=== PATIENT | female | born 1945 | race Caucasian/White ===

== ENCOUNTER 2017-03-13 08:49 | Outpatient (CLI) | payer OTHER | END 2017-03-13 08:50 | disposition home or self-care (01) | LOC: BICMAMMO 08:49 | PROVIDERS: ATTEND Nurse Practitioner | DX: Z12.31 Encounter for screening mammogram for malignant neoplasm of breast (principal) | CPT/HCPCS: 77063; 77067 ==

== ENCOUNTER 2018-02-15 13:00 | Outpatient (CLI) | payer MEDICARE ==
[2018-02-15 13:45] LABS: #Basophils 0.1 thou/uL (0.0-0.2); #Eosinphils 0.1 thou/uL (0.0-0.7); #Lymphocytes 1.9 thou/uL (1.20-3.40); #Monocytes 0.4 thou/uL (0.11-0.59); #Neutrophils 5.3 thou/uL (1.40-6.50); %Basophils 0.9 % (0.0-1.0); %Eosinophils 1.2 % (0.0-10.0); %Lymphocytes 24.6 % (21.0-51.0); %Neutrophils 68.3 % (42.0-75.0); Hemoglobin 15.4 g/dL (12.0-16.0); Mean Corpuscular HGB CONC 33.4 g/dL (32.0-36.0); Mean Corpuscular Hemoglobin 30.7 pg (27.0-31.0); Mean Corpuscular Volume 91.8 fL (78.0-98.0); Mean Platelet Volume 7.5 fL (7.4-10.4); Platelet Count 310 thou/uL (130-400); RBC Distribution Width 11.1 % (11.5-14.5); Red Blood Cell (RBC) Count 5.02 mill/uL (4.20-5.40); White Blood Cell (WBC) Count 7.8 thou/uL (4.8-10.8)
[2018-02-15 13:50] LABS: Prothrombin Time 13.4 SEC (12.0-14.7)
[2018-02-15 14:10] LABS: ALT (SGPT) 17 U/L (8-55); AST (SGOT) 23 U/L (5-34); Albumin 4.7 g/dL (3.4-4.8); Alkaline Phosphatase 110 U/L (40-150); Anion Gap 14 mmol/L (10-20); BUN (Urea Nitrogen) 14 mg/dL (9.8-20.1); Bilirubin, Total 0.7 mg/dL (0.2-1.2); Calc. Creatinine Clearance 0 mL/min (70-130); Calcium 9.6 mg/dL (7.8-10.44); Carbon Dioxide 25 mmol/L (23-31); Chloride 107 mmol/L (98-107); Estimated GFR-MDRD 63; Globulin 2.4 g/dL (2.4-3.5); Glucose 97 mg/dL (83-110); Potassium 4.6 mmol/L (3.5-5.1); Protein, Total 7.1 g/dL (6.0-8.3); Sodium 141 mmol/L (136-145)
== END 2018-02-15 13:01 | disposition home or self-care (01) ==
LOC: LABBT 13:00
PROVIDERS: ATTEND Internal Medicine Cardiovascular Disease
DX: Z01.812 Encounter for preprocedural laboratory examination (principal); R94.39 Abnormal result of other cardiovascular function study
CPT/HCPCS: 80053; 85025; 85610; 85730

== ENCOUNTER 2018-02-22 05:35 | Day surgery (SDC) | payer MEDICARE ==
[2018-02-22] MEDS ORDERED: Diazepam 5 MG TAB ONE (06:59)
[2018-02-22] MEDS ORDERED: Nitroglycerin 100MG/250ML BOT 250 ML ONE (08:16)
[2018-02-22] MEDS ORDERED: Verapamil 5 MG/2 ML VIAL ONE (08:16)
[2018-02-22] MEDS ORDERED: Heparin 10,000 UNITS/1 ML VIAL ONE (08:16)
[2018-02-22] MEDS ORDERED: Midazolam HCl 2 mg/2 ml Vial ONE (08:44)
[2018-02-22] MEDS ORDERED: Fentanyl 100 MCG/2 ML VIAL ONE (08:44)
[2018-02-22] MEDS ORDERED: Iopamidol 370 76% 100 ML VIAL ONE (09:20)
== END 2018-02-22 13:30 | disposition home or self-care (01) ==
LOC: CCL 05:35
PROVIDERS: ATTEND Internal Medicine Cardiovascular Disease
PROC: 4A023N7 Measurement of Cardiac Sampling and Pressure, Left Heart, Percutaneous Approach (ICD-10-PCS; principal; 2018-02-22)
PROC: B2111ZZ Fluoroscopy of Multiple Coronary Arteries using Low Osmolar Contrast (ICD-10-PCS; 2018-02-22)
DX: R94.39 Abnormal result of other cardiovascular function study (principal); E78.00 Pure hypercholesterolemia, unspecified; I10 Essential (primary) hypertension; E78.5 Hyperlipidemia, unspecified; Z82.49 Family history of ischemic heart disease and other diseases of the circulatory system; Z79.82 Long term (current) use of aspirin; Z79.899 Other long term (current) drug therapy
CPT/HCPCS: 76942; 93458; 99152; 99153; C1769; J1644; J2250; J3010

== ENCOUNTER 2018-03-14 10:01 | Outpatient (CLI) | payer OTHER | END 2018-03-14 10:02 | disposition home or self-care (01) | LOC: BICMAMMO 10:01 | PROVIDERS: ATTEND Clinical Nurse Specialist Medical-Surgical | DX: Z12.31 Encounter for screening mammogram for malignant neoplasm of breast (principal); Z80.3 Family history of malignant neoplasm of breast | CPT/HCPCS: 77063; 77067 ==

== ENCOUNTER 2018-10-02 10:52 | Observation (INO) | payer MEDICARE ==
[2018-10-02 11:50] LABS: #Basophils 0.1 thou/uL (0.0-0.2); #Eosinphils 0.2 thou/uL (0.0-0.7); #Lymphocytes 1.9 thou/uL (1.20-3.40); #Monocytes 0.4 thou/uL (0.11-0.59); #Neutrophils 4.2 thou/uL (1.40-6.50); %Basophils 1.6 % (0.0-1.0); %Eosinophils 2.4 % (0.0-10.0); %Neutrophils 61.9 % (42.0-75.0); Hemoglobin 11.1 g/dL (12.0-16.0); Mean Corpuscular Hemoglobin 31.9 pg (27.0-31.0); Mean Platelet Volume 7.7 fL (7.4-10.4); Platelet Count 237 thou/uL (130-400); RBC Distribution Width 11.1 % (11.5-14.5); White Blood Cell (WBC) Count 6.7 thou/uL (4.8-10.8)
[2018-10-02] MEDS ORDERED: Pantoprazole 40 MG VIAL ONE (12:18)
[2018-10-02 12:40] LABS: ALT (SGPT) 11 U/L (8-55); AST (SGOT) 19 U/L (5-34); Albumin 4.1 g/dL (3.4-4.8); Alkaline Phosphatase 78 U/L (40-150); Anion Gap 12 mmol/L (10-20); BUN (Urea Nitrogen) 25 mg/dL (9.8-20.1); Bilirubin, Total 0.4 mg/dL (0.2-1.2); Calc. Creatinine Clearance 0 mL/min (70-130); Calcium 9.4 mg/dL (7.8-10.44); Carbon Dioxide 26 mmol/L (23-31); Chloride 106 mmol/L (98-107); Estimated GFR-MDRD 63; Globulin 2.2 g/dL (2.4-3.5); Glucose 91 mg/dL (83-110); Lipase 34 U/L (8-78); Protein, Total 6.3 g/dL (6.0-8.3); Sodium 140 mmol/L (136-145)
[2018-10-02 13:30] LABS: Bilirubin Negative (Negative); Blood, Urine Negative (Negative); Clarity Clear (Clear); Glucose, Urine (Dipstick) Normal (Negative); Leukocyte Negative Leu/uL (Negative); Nitrite Negative (Negative); Protein, Urine (Dipstick) Negative (Neg-Trace); Urobilinogen Normal mg/dL (Less than 2)
[2018-10-02] MEDS ORDERED: Acetaminophen 325 MG TAB PO PRN ×2 (14:28→14:30)
[2018-10-02] MEDS ORDERED: Ondansetron ODT 4 MG TAB SL PRN (14:28)
[2018-10-02] MEDS ORDERED: HYDROcodone/Acetaminophen 5/325 mg Tablet PO PRN ×2 (14:28)
[2018-10-02] MEDS ORDERED: Ondansetron PF 4 MG/2 ML Vial IVP PRN (14:28)
[2018-10-02] MEDS ORDERED: hydrALAZINE 20 MG/ML VIAL SLOW IVP PRN (14:30)
[2018-10-02] MEDS ORDERED: Metoclopramide HCl 10 MG/2 ML VIAL IVP PRN (14:30)
[2018-10-02] MEDS ORDERED: Diabetic Tussin 200 MG/10 ML UDCUP PO PRN (14:30)
[2018-10-02] MEDS ORDERED: Zolpidem Tartrate 5 MG TAB PO PRN (14:30)
[2018-10-02] MEDS ORDERED: Cepastat Lozenges 1 LOZ PO PRN (14:30)
[2018-10-02] MEDS ORDERED: Calcium Carbonate 500 MG ChewTAB PO PRN (14:30)
[2018-10-02] MEDS ORDERED: Artificial Tears 18 DROP/0.9 ML EA EYE PRN (14:30)
[2018-10-02] MEDS ORDERED: Senokot S 8.6-50 MG TAB PO PRN (14:30)
[2018-10-02] MEDS ORDERED: Bisacodyl 10 MG SUPP PR PRN (14:30)
[2018-10-02] MEDS ORDERED: Loratadine 10 MG TAB PO PRN (14:30)
[2018-10-02] MEDS ORDERED: Loperamide HCl 2 MG CAP PO PRN (14:30)
[2018-10-02] MEDS ORDERED: Sodium Chloride 0.65% Nasal 44 ML BOT EA NARE PRN (14:30)
--- NOTE | 2018-10-02 14:44 | HP ---
PRIMARY CARE PHYSICIAN: [facility] REASON FOR ADMISSION: Hematemesis and melena. HISTORY OF PRESENT ILLNESS: A 73-year-old female, who has underlying history of chronic headache. The patient is taking naproxen sodium 2 tablet almost every day basis along with Excedrin with aspirin for headache. The patient does not have any epigastric abdominal pain. Two days ago the patient had one episode of coffee-grounds emesis and today patient noticed black tarry stool. The patient was feeling mild nausea, mild weakness, but she did not have any near-syncope or syncope. She did not have any chest pain, palpitation, abdominal pain. She never had this type of problem in past. She was worried about it and that is why decided to come to emergency room for evaluation. The patient is also taking aspirin for stroke prophylaxis for her atrial fibrillation. REVIEW OF SYSTEMS: CONSTITUTIONAL: Negative for weight loss or gain, ability to conduct usual activities. SKIN: Negative for rash, itching. EYES: Negative for double vision, pain. ENT/MOUTH: Negative for nose bleeding, neck stiffness, pain, tenderness. CARDIOVASCULAR: Negative for palpitations, dyspnea on exertion, orthopnea. RESPIRATORY: Negative for shortness of breath, wheezing, cough, hemoptysis, fever or night sweats. GASTROINTESTINAL: Negative for poor appetite, abdominal pain, heartburn, nausea, vomiting, constipation, or diarrhea. GENITOURINARY: Negative for urgency, frequency, dysuria, nocturia. MUSCULOSKELETAL: Negative for pain, swelling. NEUROLOGIC/PSYCHIATRIC: Negative for anxiety, depression. ALLERGY/IMMUNOLOGIC: Negative for skin rash, bleeding tendency. Please see my HPI for pertinent positive and negatives. All other review of systems reviewed and negative except as mentioned in HPI. PAST MEDICAL HISTORY: Paroxysmal atrial fibrillation, chronic headache. PAST PSYCHIATRIC HISTORY: Reviewed and negative. PAST SURGICAL HISTORY: Cyst removal from right breast, tonsillectomy, tubal ligation. SOCIAL HISTORY: The patient is . No history of tobacco, alcohol, or illicit drug abuse. FAMILY HISTORY: No strong family history of premature coronary artery disease, stroke, or cancer. ALLERGIES: NO KNOWN DRUG ALLERGIES. CURRENT HOME MEDICATIONS: 1. Aspirin 81 mg daily. 2. Flecainide 100 mg twice daily. 3. Toprol-XL 25 mg p.o. daily. EMERGENCY ROOM COURSE: The patient was given Protonix 40 mg IV one time dose. PHYSICAL EXAMINATION: VITAL SIGNS: Currently, blood pressure 124/74, pulse 70, respiratory rate 16, temperature 98.0, Saturation 97% on room air. Weight 69 kg. GENERAL: The patient is currently alert, awake in no obvious acute distress. HEENT: Head; normocephalic, atraumatic. Eyes; pupils round, reactive to light. Extraocular muscle intact. ENT: Oropharynx within normal limits. Moist mucous membranes. No oral lesion. No pharyngeal erythema. No exudate. NECK: Supple. No JVD. No thyromegaly. No carotid bruit. No jugular venous distention. LUNGS: Clear to auscultation without any rhonchi or rales. CARDIAC: S1, S2 regular. No murmur. No gallop. No rub. ABDOMEN: Soft. Bowel sounds present. Nontender. Nondistended. No organomegaly. No mass. No suprapubic tenderness. BACK: Unremarkable. No CVA tenderness. EXTREMITIES: Upper extremities passive movement of all joints are normal. Normal lower extremity. No edema. Good distal pulsation. SKIN: No skin rash. HEMATOLOGICAL: No lymphadenopathy. NEUROLOGIC: Nonfocal examination. SIGNIFICANT LABORATORY DATA: CBC: WBC 6.7, hemoglobin 11.1 platelet 237. BMP: Sodium 140, potassium 4.0, chloride 106, carbon dioxide 26, BUN 25, creatinine 0.88, glucose 91, calcium 9.4. LFT: AST 19, ALT 11, alkaline phosphatase 78, albumin 4.1, lipase 34. Urinalysis normal. ASSESSMENT AND PLAN: 1. Acute upper gastrointestinal bleed. The patient has episode of hematemesis and subsequent melenotic stool. She has elevated BUN, all consistent with upper gastrointestinal bleed, most likely related with non-steroidal anti-inflammatory drug induced gastritis versus peptic ulcer disease. The patient will be observed on the telemetry floor. We will consult project management consultant for further evaluation. We will repeat complete blood count tomorrow. We will continue with clear liquid diet. The patient will need upper endoscopy tomorrow and we will treat her with Protonix 40 mg IV b.i.d. The patient was given instruction about not to take non steroidal anti-inflammatory drugs on a chronic basis. 2. Anemia, likely due to acute blood loss, but the patient's hemoglobin is stable. She is not symptomatic and she does not need any blood transfusion at this point. We will repeat complete blood count tomorrow. 3. Paroxysmal atrial fibrillation. We will continue flecainide 100 mg twice daily and Toprol-XL 25 mg p.o. at bedtime we will hold on aspirin therapy for now. 4. Deep venous thrombosis prophylaxis, sequential compression device boots. 5. Gastrointestinal prophylaxis. The patient is already on Protonix therapy. CODE STATUS: The patient is full code. The patient's is surrogate decision maker. DISPOSITION PLAN: Based on clinical course, we are expecting patient's stay in hospital 24 to 48 hours. Plan of care discussed with the patient and her in detail. Job ID: [id number]
[2018-10-02 14:46] VITALS: BMI 23.9
[2018-10-02] MEDS: Sodium Chloride 0.9% 1,000 ML IV SCH (15:53)
[2018-10-02] MEDS ORDERED: Pantoprazole 40 MG VIAL IVP SCH (21:00)
[2018-10-02] MEDS ORDERED: Promethazine HCl 25 MG/ML VIAL SLOW IVP PRN (21:14)
[2018-10-02] MEDS ORDERED: Ondansetron HCl/PF 4 MG/2 ML Vial IVP PRN (21:14)
[2018-10-02] MEDS ORDERED: Promethazine HCl 25 MG/ML VIAL IM PRN (21:14)
[2018-10-02] MEDS ORDERED: Lidocaine 1% PF 5 ML VIAL ONE (21:57)
[2018-10-02] MEDS ORDERED: PROPOFOL 200 MG/20 ML VIAL ONE (21:57)
[2018-10-02] MEDS: Flecainide 50 MG TAB PO SCH (22:09)
[2018-10-02] MEDS: Pantoprazole 40 MG VIAL IVP SCH (22:14)
--- NOTE | 2018-10-02 22:53 | OP ---
DATE OF PROCEDURE: 10/02/2018 PROCEDURE PERFORMED: Esophagogastroduodenoscopy with biopsy. PREOPERATIVE DIAGNOSIS: A 73-year-old female with history of coffee-ground vomiting last night and also black tarry stool this morning, undergoing esophagogastroduodenoscopy. POSTOPERATIVE DIAGNOSES: 1. Normal esophagus. 2. Moderate-sized hiatal hernia, measuring about 3 cm. 3. Normal fundus and cardia. 4. Gastric ulcer over the gastric antrum measuring 1 cm with no visible vessel and clean base. 5. Multiple shallow ulcers in the gastric antrum. 6. Duodenitis with ulceration in the bulb. No active bleeding. Descending duodenum, no pathology. DESCRIPTION OF PROCEDURE: The patient was placed on her left lateral position and was given sedation by Anesthesia Department. A [employer] video gastroscope under direct vision passed down the oropharynx, past the GE junction into the stomach and subsequently into the descending duodenum. The stomach was completely free of any blood. The esophageal mucosa appeared normal. The GE junction, no pathology. She had a 3 cm sized Hiatal hernia. Retroflexion failed to show any pathology in fundus or cardia. The gastric body, no pathology. The gastric antrum showed 1 cm ulceration. It also showed a clean base. No visible vessel seen. There were 3 more shallow ulcerations in the antrum. The duodenal bulb, the mucosa markedly hyperemic and erythematous. There was ulceration seen, but we do not see any active bleeding. The descending duodenum, no pathology. Biopsy obtained from the gastric antrum and body. The stomach decompressed and the scope removed. RECOMMENDATION: 1. Continue Protonix. 2. Clear liquid diet today. 3. Follow up H and H. 4. If she is clinically stable, we may consider discharge later on tomorrow. Job ID: [id number] [facility]
--- NOTE | 2018-10-02 22:55 | CON ---
DATE OF CONSULTATION: 10/02/2018 REASON FOR CONSULTATION: Upper gastrointestinal bleeding. HISTORY OF PRESENT ILLNESS: Ms. Hanna Rizvi is a very pleasant 73-year-old female who is very healthy all her life. The only problem she has is paroxysmal atrial fibrillation and is on medications. She does see Dr. 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 She tells me she had a cardiac cath about 6 months ago and was told to be negative. On Toprol and flecainide. The patient has history of chronic headache off and on. The headache is actually over the years. There is nothing acute. She has taken naproxen and Excedrin and also the aspirin off and on for headache. She at least takes 4 or 5 times a week this medication. She has no history of any abdominal pain, nausea, vomiting. She had an episode of coffee-ground vomiting last night. This morning, she had 1 episode of black tarry stool. She came to the hospital and hospitalized. She has no previous symptoms. She has no abdominal pain. No nausea. No indigestion. No dyspepsia. No heartburn. Her bowel movements are regular. She had a negative colonoscopy a few years ago. The patient's bowel movements are fairly regular. She has only 1 black tarry stool today. She has no relevant history. ALLERGIES: NONE. SOCIAL HISTORY: The patient is . Does not smoke or drink alcohol. MEDICAL ILLNESS: 1. Paroxysmally atrial fibrillation on flecainide and Toprol. 2. History of chronic headache. 3. No history of any diabetes, hypertension, lung disease. PAST SURGICAL HISTORY: She had tubal ligation, breast biopsy, and tonsillectomy. MEDICATION LIST: Reviewed. FAMILY HISTORY: Father of myasthenia gravis at the age of 37. Mother, she is 90 years old, living and she has TIA. No family history of any cancer. SYSTEM REVIEW: CONSTITUTIONAL: No history of any fever. No night sweats. No weight loss. She has good appetite and good exercise tolerance. HEENT: She has headache all over the year and at times, the headache is very severe. No history of any syncope. No dizziness. No diplopia. No impaired vision. Ears; no hearing impairment. Throat; no sore throat or dysphagia. Neck; no stiffness or limited movement. LUNGS: No chronic coughing. No hemoptysis. No dyspnea. CARDIOVASCULAR SYSTEM: No chest pain. No palpitation. No dyspnea, orthopnea, or PND. GI: No abdominal pain. Bowel movements are regular. : Unremarkable. MUSCULOSKELETAL: Unremarkable. NEUROPSYCHIATRY: Nonrelevant. PHYSICAL EXAMINATION: GENERAL: She is a very pleasant female, appears very comfortable. VITAL SIGNS: Afebrile, pulse is 72, blood pressure 129/59. EYES: Conjunctivae clear. NECK: Supple. No adenitis or thyromegaly noted. CARDIOVASCULAR SYSTEM: First and second heart sounds heard. LUNGS: Clear to auscultation. ABDOMEN: Soft. No organomegaly. No tenderness. No masses. EXTREMITIES: Reveal no edema. LABORATORY DATA: CBC; WBC 6700, hemoglobin is 11.1, hematocrit 31.8, MCV 91, platelet count 237,000, polys are 61, lymphocytes 28. Chemistry panel, chem 7 is normal, BUN is 25, creatinine is 0.88. LFTs are normal. Alkaline phosphatase is 78. AST and ALT normal. Lipase 44. CLINICAL IMPRESSION: 1. A 73-year-old female, with upper gastrointestinal bleeding, most likely bleeding from ulcer disease, she has been long-term on NSAID and aspirin etc. 2. Abdominal pain. 3. Paroxysmal atrial fibrillation. PLANS: 1. N.p.o. 2. IV _Pantoprazole_. 3. Follow up H and H. 4. EGD later on today. Job ID: [id number] [facility]
[2018-10-03 05:51] LABS: #Basophils 0.1 thou/uL (0.0-0.2); #Eosinphils 0.2 thou/uL (0.0-0.7); #Lymphocytes 1.7 thou/uL (1.20-3.40); #Monocytes 0.3 thou/uL (0.11-0.59); #Neutrophils 2.4 thou/uL (1.40-6.50); %Basophils 1.6 % (0.0-1.0); %Eosinophils 3.4 % (0.0-10.0); %Lymphocytes 36.1 % (21.0-51.0); %Monocytes 7.2 % (0.0-10.0); %Neutrophils 51.7 % (42.0-75.0); Mean Corpuscular HGB CONC 34.5 g/dL (32.0-36.0); Mean Corpuscular Hemoglobin 31.9 pg (27.0-31.0); Mean Corpuscular Volume 92.5 fL (78.0-98.0); Platelet Count 191 thou/uL (130-400); Red Blood Cell (RBC) Count 3.12 mill/uL (4.20-5.40); White Blood Cell (WBC) Count 4.7 thou/uL (4.8-10.8)
[2018-10-03 06:10] LABS: Anion Gap 9 mmol/L (10-20); BUN (Urea Nitrogen) 13 mg/dL (9.8-20.1); Calc. Creatinine Clearance 72 mL/min (70-130); Calcium 8.4 mg/dL (7.8-10.44); Carbon Dioxide 26 mmol/L (23-31); Chloride 110 mmol/L (98-107); Estimated GFR-MDRD 74; Glucose 80 mg/dL (83-110); Potassium 3.8 mmol/L (3.5-5.1); Sodium 141 mmol/L (136-145)
[2018-10-03] MEDS: Sodium Chloride 0.9% 1,000 ML IV SCH (07:14)
[2018-10-03] MEDS: Flecainide 50 MG TAB PO SCH (07:42)
[2018-10-03] MEDS: Pantoprazole 40 MG VIAL IVP SCH (07:42)
[2018-10-03 08:30] VITALS: TEMP 98.4
[2018-10-03] MEDS ORDERED: Flecainide 50 MG TAB PO SCH (09:00)
[2018-10-03] MEDS ORDERED: FLECAINIDE ACETATE PO SCH (09:00)
[2018-10-03 12:38] VITALS: BP 112/56
--- NOTE | 2018-10-03 21:34 | DIS ---
DATE OF ADMISSION: 10/02/2018 DATE OF DISCHARGE: 10/03/2018 DISCHARGE DIAGNOSES: As of the followin. Acute upper gastrointestinal bleed. 2. Anemia. 3. Paroxysmal atrial fibrillation. HOSPITAL COURSE: The patient is a 73-year-old female, who initially presented to the hospital with complaints of dark stools and hematemesis. At this time, she was found to be anemic, however, it was stable. The patient did undergo an upper endoscopy that indicated she had multiple shallow ulcers in the gastric antrum, duodenitis and ulcerations in the pulp. No active bleeding was noted. The patient's H and H were stable. She was put on Protonix. She was discharged home. She will follow up with GI for the results of her biopsies. The patient's vital signs are stable. Her diet was advanced. She was advised to not take any Aleve or ibuprofen, only to take the aspirin as per recommendation for her paroxysmal atrial fibrillation. She is going to be on Protonix 40 mg b.i.d., aspirin 81 mg daily, flecainide one tablet p.o. b.i.d., metoprolol 1 tab daily. PHYSICAL EXAMINATION: VITAL SIGNS: Temperature 98.4, 63, 15, 97% on room air, 134/62. GENERAL: She is awake, alert, and oriented x3. Does not appear in distress. CV: S1, S2 present. No murmurs, rubs, or gallops. ABDOMEN: Soft and nontender. Bowel sounds are present x2. EXTREMITIES: No edema. Pedal pulses are present x2. Job ID: [id number]
== END 2018-10-03 12:42 | disposition home or self-care (01) ==
LOC: ERS 10:52 → 2SW 14:26
PROVIDERS: ADMIT Internal Medicine; ATTEND Internal Medicine
PROC: 0DB68ZX Excision of Stomach, Via Natural or Artificial Opening Endoscopic, Diagnostic (ICD-10-PCS; principal; 2018-10-02)
PROC: 0DB78ZX Excision of Stomach, Pylorus, Via Natural or Artificial Opening Endoscopic, Diagnostic (ICD-10-PCS; 2018-10-02)
DX: K29.81 Duodenitis with bleeding (principal); K31.89 Other diseases of stomach and duodenum; D64.9 Anemia, unspecified; I48.0 Paroxysmal atrial fibrillation; K44.9 Diaphragmatic hernia without obstruction or gangrene; R51 Headache; G89.29 Other chronic pain; Z79.82 Long term (current) use of aspirin; Z79.899 Other long term (current) drug therapy
CPT/HCPCS: 43239; 80048; 80053; 81003; 82274; 83690; 85025 ×2; 86850; 86900; 86901; 88305; 88312; 96361; 96374; 96376 ×2; 99285; G0378 ×3; 36415; C9113; J2001; J2704; Q0162

== ENCOUNTER 2019-04-15 10:29 | Outpatient (CLI) | payer MEDICARE ==
--- NOTE | 2019-04-15 13:52 | MMO ---
Bilateral MAMMO Bilat Screen [facility]. CLINICAL HISTORY: Patient is 73 years old and is seen for screening. The patient has a history of right Excisional Biopsy in ? - benign. VIEWS: The views performed were: . FILMS COMPARED: The present examination has been compared to prior imaging studies performed at [facility] on 07/17/2014, 08/11/2015, 03/13/2017 and 03/14/2018. This study has been interpreted with the assistance of computer-aided detection. MAMMOGRAM FINDINGS: There are scattered fibroglandular densities. There are stable benign appearing calcifications seen in both breasts. There are no suspicious masses, suspicious calcifications, or new areas of architectural distortion. IMPRESSION: THERE IS NO MAMMOGRAPHIC EVIDENCE OF MALIGNANCY. A ROUTINE FOLLOW-UP MAMMOGRAM IN 1 YEAR IS RECOMMENDED. THE RESULTS OF THIS EXAM WERE SENT TO THE PATIENT. ACR BI-RADS Category 2 - Benign finding MAMMOGRAPHY NOTE: 1. A negative mammogram report should not delay a biopsy if a dominant of clinically suspicious mass is present. 2. Approximately 10% to 15% of breast cancers are not detected by mammography. 3. Adenosis and dense breasts may obscure an underlying neoplasm. Reported by: JADA PRIETO MD Electonically Signed: [id number]
== END 2019-04-15 10:30 | disposition home or self-care (01) ==
LOC: BICMAMMO 10:29
PROVIDERS: ATTEND Clinical Nurse Specialist Medical-Surgical
DX: Z12.31 Encounter for screening mammogram for malignant neoplasm of breast (principal); Z98.890 Other specified postprocedural states
CPT/HCPCS: 77063; 77067

== ENCOUNTER 2020-06-30 09:31 | Outpatient (CLI) | payer MEDICARE | END 2020-06-30 09:32 | disposition home or self-care (01) | LOC: BICMAMMO 09:31 | PROVIDERS: ATTEND Clinical Nurse Specialist Medical-Surgical | DX: Z12.31 Encounter for screening mammogram for malignant neoplasm of breast (principal); Z91.89 Other specified personal risk factors, not elsewhere classified; Z80.3 Family history of malignant neoplasm of breast | CPT/HCPCS: 77063; 77067 ==

== ENCOUNTER 2021-07-01 09:49 | Outpatient (CLI) | payer MEDICARE | END 2021-07-01 09:50 | disposition home or self-care (01) | LOC: BICMAMMO 09:49 | PROVIDERS: ATTEND Registered Nurse Community Health | DX: Z12.31 Encounter for screening mammogram for malignant neoplasm of breast (principal); Z91.89 Other specified personal risk factors, not elsewhere classified; Z80.3 Family history of malignant neoplasm of breast | CPT/HCPCS: 77063; 77067 ==